=== PATIENT | female | born 1990 | race Caucasian/White ===

== ENCOUNTER 2020-03-08 10:46 | Outpatient (REF) | payer MEDICAID, SELFPAY ==
[2020-03-09 11:34] LABS: BV Int Neg Control Negative (Negative); BV Int Pos Control Positive (Positive)
[2020-03-09 13:52] LABS: C. trachomatis RNA TMA NOT DETECTED (NOT DETECTED); N. gonorrhoeae RNA TMA NOT DETECTED (NOT DETECTED)
== END 2020-03-08 10:47 | disposition home or self-care (01) ==
LOC: HO.LAB 10:46
PROVIDERS: Visit Provider Advanced Practice Midwife
DX: N89.8 Other specified noninflammatory disorders of vagina (principal)
CPT/HCPCS: 36415; 87480; 87491; 87510; 87591; 87660; 99212

== ENCOUNTER 2020-03-21 09:00 | Outpatient (REF) | payer MEDICAID, SELFPAY ==
[2020-03-25 21:52] LABS: HPV mRNA E6/E7 Not Detected (Not Detected)
== END 2020-03-21 09:01 | disposition home or self-care (01) ==
LOC: HO.LAB 09:00
PROVIDERS: Visit Provider Advanced Practice Midwife
DX: Z01.419 Encounter for gynecological examination (general) (routine) without abnormal findings (principal); Z87.42 Personal history of other diseases of the female genital tract
CPT/HCPCS: 36415; 87624; 87625; 88141; 88142

== ENCOUNTER 2020-04-01 10:44 | Outpatient (REF) | payer MEDICAID, SELFPAY ==
--- NOTE | 2020-04-01 11:16 | ECG_ITS ---
Test Reason : PREPRROC EXAM Blood Pressure : / mmHG Vent. Rate : 076 BPM Atrial Rate : 076 BPM P-R Int : 152 ms QRS Dur : 078 ms QT Int : 360 ms P-R-T Axes : 064 043 023 degrees QTc Int : 405 ms Normal sinus rhythm Normal ECG No previous ECGs available Referred By: Shantel Foley Electronically Signed By:JOAN SHELL MD
[2020-04-01 11:38] LABS: MANUAL DIFF FLAG NO
[2020-04-01 11:50] LABS: Basophils Percent Auto 0.5 % (0-2); Eosinophils Absolute Auto 0.1 X10*3/uL (0.0-0.4); Eosinophils Percent Auto 1.4 % (0-4); Hematocrit 36.4 % (37-47); Hemoglobin 12.7 g/dl (12.0-16.0); Imm Gran Abs Auto 0.02 X10*3/uL (0.00-0.03); Imm Gran Pct Auto 0.3 % (0.0-0.4); Lymphocytes Absolute Auto 2.5 X10*3/uL (1.2-4.9); Lymphocytes Percent Auto 31.5 % (20-40); Mean Corpuscular HGB Conc 34.9 g/dl (31.0-35.0); Mean Corpuscular Hemoglobin 30.5 pg (27.0-33.0); Mean Corpuscular Volume 87.5 fL (80-98); Mean Platelet Volume 11.6 fL (9.4-12.3); Monocytes Absolute Auto 0.5 X10*3/uL (0.1-1.2); Monocytes Percent Auto 5.7 % (2-11); Neutrophils Absolute Auto 4.8 X10*3/uL (2.0-8.3); Neutrophils Percent Auto 60.6 % (45-73); Platelet Count 218 X10*3/uL (160-400); Prothrombin Time 11.8 SEC (10.8-13.0); Red Blood Count 4.16 X10*6/uL (4.20-5.50); White Blood Count 7.9 X10*3/uL (4.8-10.8)
[2020-04-01 11:53] LABS: Partial Thromboplastin Time 31.4 SEC (24.1-38.0)
[2020-04-01 12:17] LABS: Alanine Aminotransferase < 6 U/L (0-31); Albumin Level 4.5 g/dL (3.5-5.0); Alkaline Phosphatase 47 U/L (39-117); Anion Gap 11 (12-20); Aspartate Amino Transferase 14 U/L (5-31); Bilirubin Total 0.5 mg/dL (0.0-1.0); Blood Urea Nitrogen 16 mg/dL (9-16); Calcium 9.4 mg/dL (8.4-10.2); Carbon Dioxide 27 mmol/L (22-29); Chloride 104 mmol/L (96-108); Estimated Glomerular Filt Rate > 60; Glucose Random 80 mg/dL (60-115); Potassium 4.1 mmol/L (3.3-5.1); Sodium 138 mmol/L (135-145); Total Protein 7.2 g/dL (6.5-8.0)
[2020-04-01 12:27] LABS: HIV AB/AG Nonreactive (Nonreactive); HIV Num 1 0.06 S/CO (0.00-0.99)
[2020-04-01 12:36] LABS: HCG Quantitative < 2 mIU/mL; Thyroid Stimulating Hormone 1.79 uIU/mL (0.32-4.0)
[2020-04-01 13:26] LABS: Estimated Average Glucose 91 mg/dL; Hemoglobin A1c % 4.8 %
[2020-04-02 15:56] LABS: C. trachomatis RNA TMA NOT DETECTED (NOT DETECTED); N. gonorrhoeae RNA TMA NOT DETECTED (NOT DETECTED)
[2020-04-02 21:52] LABS: Triiodothyronine T3 Free 3.1 pg/mL (2.3-4.2)
== END 2020-04-01 10:45 | disposition home or self-care (01) ==
LOC: HO.LAB 10:44
PROVIDERS: Absent Provider Family Medicine; PCP Internal Medicine; Visit Provider Internal Medicine
DX: Z01.818 Encounter for other preprocedural examination (principal)
CPT/HCPCS: 36415; 80053; 83036; 84436; 84443; 84481; 84702; 85025; 85610; 85730; 87389; 87491; 87591; 93005

== ENCOUNTER 2021-12-31 11:54 | Outpatient (REF) | payer MEDICAID, SELFPAY | END 2021-12-31 11:55 | disposition home or self-care (01) | LOC: HO.LNP 11:54 | PROVIDERS: Visit Provider Advanced Practice Midwife | DX: Z13.89 Encounter for screening for other disorder (principal) ==

== ENCOUNTER 2021-12-31 16:03 | Outpatient (REF) | payer MEDICAID, SELFPAY ==
[2022-01-01 02:26] LABS: CT PCR NOT DETECTED (Not Detect.); NG PCR NOT DETECTED (Not Detect.)
[2022-01-01 09:35] LABS: BV Int Neg Control Negative (Negative); BV Int Pos Control Positive (Positive)
== END 2021-12-31 16:04 | disposition home or self-care (01) ==
LOC: HO.LNP 16:03
PROVIDERS: Visit Provider Advanced Practice Midwife
DX: Z01.419 Encounter for gynecological examination (general) (routine) without abnormal findings (principal)
CPT/HCPCS: 87480; 87491; 87510; 87591; 87660

== ENCOUNTER → 2022-05-06 13:18 | Outpatient (REF) | payer MEDICAID, SELFPAY ==
--- NOTE | 2022-05-06 13:21 | CA_ITS ---
Transthoracic Echocardiogram Patient (Last, First, Middle): Neisha De Guzman, Gender: Female Date of : 1990 Age: 32 Procedure Date: 05/06/2022 Procedure Type: Transthoracic Echocardiogram Location: OP Height: 165. cm Weight: 60.33 kg BSA: 1.66 m2 Heart Rate: 69 bpm BP: 100 / 70 mmHg Retail Financial Analyst: TORO Referring MD: Shantel Foley MD Symptoms: DIZZINESS Study Quality: Adequate ECG Rhythm: Sinus Conclusions: - The left ventricular systolic function is normal. The visually estimated ejection fraction is between 55-60%. - No obvious valvular pathology seen on this study. Findings Left Ventricle Normal left ventricular cavity size. There is normal left ventricular wall thickness. The left ventricular systolic function is normal. The visually estimated ejection fraction is between 55-60%. There is no evidence of regional wall motion abnormalities. Diastolic function is normal for age. Right Ventricle Normal right ventricular cavity size and systolic function. Atria Both atria are normal in size. Aortic Valve There is a normal trileaflet aortic valve. There is no aortic valve stenosis. There is no aortic valve regurgitation. Mitral Valve The mitral valve appears normal. There is trace mitral valve regurgitation. There is no mitral valve stenosis. Pulmonic Valve The pulmonic valve is likely normal. Tricuspid Valve Normal tricuspid valve structure. There is trace tricuspid valve regurgitation. There is no evidence of pulmonary hypertension. Great Vessels The aortic annulus, sinuses of valsalva, and asc aorta are normal in size. Venous The inferior vena cava is normal in size and collapses greater than 50% with inspiration. Pericardium/Pleural There is a trivial pericardial effusion. Prior Study Comparison No prior study available for comparison. Recommendations, Care & Conclusions No obvious valvular pathology seen on this study. Measurements 2D Linear Measurements IVSd: 0.78 0.6-0.9/0.6-1.0 cm LVIDd: 4.58 3.9-5.3/4.2-5.9 cm LVIDd Index: 2.76 2.4-3.2/2.2-3.1 cm/m2 LVIDs: 3.30 2.0-3.6 cm LVPWd: 0.82 0.7-1.1 cm LA Diam: 3.10 2.7-3.8/3.0-4.0 cm LAIDs Index: 1.87 1.5-2.3 cm/m2 LV Mass: 146.15 67-162/88-224 g LV Mass Index: 88.04 43-95/49-115 g/m2 LVOT Diam: 1.80 3.0+(-)1.3 cm 2D Systolic Function EF 4C: 61.30 >55% EF 2C: 64.30 >55% EF BiP: 63.50 >55% Mitral Valve MV Pk E: 0.75 MV PK A: 0.62 MV Decel Time: 187.00 E/A: 1.20 E'Lateral: 11.20 E'Medial: 10.20 E/E' Med: 7.40 E/E' Lat: 6.70 PHT: 55.00 MVA PHT: 4.00 Decel Bulloch: 4.02 Aortic Valve AoV Pk Edenilson: 1.28 AoV Mn Edenilson: 0.89 AoV VTI: 0.28 AoV Pk Grad: 7.00 Aov Mn Grad: 4.00 GEORGETTE Cont.VTI: 1.71 LVOT LVOT Pk Edenilson: 0.84 LVOT Mn Edenilson: 0.60 LVOT VTI: 0.19 LVOT Pk Grad: 3.00 LVOT Mn Grad: 2.00 LVOT Diam: 1.80 LVOT Area: 2.54 Diastolic Function MV Pk E: 0.75 MV Pk A: 0.62 E/A: 1.20 E'Medial: 10.20 E/E' Med: 7.40 E' Laterial: 11.20 E/E' Lat: 6.70 Right Ventricle TAPSE (mm): 20.40 TVS' Edeinlson: 11.40 Tricuspid Valve TR Pk Edenilson: 1.53 TR Pk Grad: 9.00 RA Press: 3.00 RVSP: 12.00 Great Vessels Aorta Sinus of Valsalva: 2.70 2.0-3.5 cm Ao Asc: 2.90 2.1-3.4 cm Pulmonary Valve PV Pk Edenilson: 0.69 Peak PV Grad: 2.00 Updated in Other Vendor System with Status of Final Del Lyle MD electronically signed on 05/07/2022 4:36:41 PM with status of Final
== END ==
LOC: HO.CARD 13:18
PROVIDERS: PCP Internal Medicine; Visit Provider Internal Medicine
DX: R42 Dizziness and giddiness (principal)
CPT/HCPCS: 93306

== ENCOUNTER 2023-07-20 13:24 | Outpatient (REF) | payer MEDICAID, SELFPAY ==
[2023-07-21 09:33] LABS: CT PCR NOT DETECTED (Not Detect.); NG PCR NOT DETECTED (Not Detect.)
[2023-07-21 10:23] LABS: Bacterial Vaginosis PCR NEGATIVE (Negative); Candida Group PCR NOT DETECTED (Not Detect); Candida glab krusei PCR NOT DETECTED (Not Detect); Trichomonas vaginalis PCR NOT DETECTED (Not Detect)
[2023-07-31 10:39] LABS: HPV 16 RNA NOT DETECTED (NOT DETECTED); HPV mRNA E6/E7 rflx Detected (Not Detected)
== END 2023-07-20 13:25 | disposition home or self-care (01) ==
LOC: HO.LAB 13:24
PROVIDERS: PCP Internal Medicine; Visit Provider Advanced Practice Midwife
DX: Z01.419 Encounter for gynecological examination (general) (routine) without abnormal findings (principal); N89.8 Other specified noninflammatory disorders of vagina; Z11.3 Encounter for screening for infections with a predominantly sexual mode of transmission
CPT/HCPCS: 0352U; 0353U; 87624; 87625; 88142; 99395

== ENCOUNTER 2023-07-20 13:24 | Outpatient (AMB) | payer MEDICAID, SELFPAY ==
[2023-07-20 13:29] VITALS: BP 110/68; BMI 23.0
--- NOTE | 2023-07-20 13:29 | MHC.OFFVIS ---
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 She notes that her breast do get whalen and more heavy before her period.. She is expecting her period in about a week at this point [facility] Surgical History H/O abdominoplasty Family History Mother HTN (hypertension) Father Colon cancer Social History Alcohol intake: current Alcohol intake frequency: holidays/special occasions only Gender identity: Female Female Reproductive History Menstrual Age of Menarche: 11 Duration of menses: 3-5 days Date of last menstrual period: 06/29/23 control method: none Total pregnancies: 2 Full term: 2 Date of last pap smear: 03/22/20 ( previous pap 2019,wn) History of abnormal pap smear: No Physical Exam Vital Signs: Last Vital Signs BP 110/68 07/20/23 13:29 BMI result Body Mass Index 23.0 Const General: healthy appearing, comfortable, no acute distress, well developed and alert Nutritional Appearance: average body habitus Orientation/consciousness: patient oriented x3 Limitations: no limitations HEENT Head: Yes normocephalic Neck Neck: Yes normal visual inspection Chest Chest palpation & inspection: normal inspection of the chest Breast/axilla inspection: normal inspection of the breasts and normal inspection of the axillae Breast/axilla palpation: normal palpation of the breasts and normal palpation of the axillae Resp Effort & Inspection: normal respiratory effort GI Inspection: Yes normal to inspection, No Abdominal wall edema and No distended Palpation (GI): Soft to palpation and nontender Other: External exam within normal limits vagina is pink moist cervix multiparous pink smooth extremely posterior and markedly downward facing, uterus small anteverted mobile nontender adnexa nontender very good tone with Kegel. General: Yes bladder normal to palpation External Female Exam: normal external appearance and normal appearance of the urethra Speculum Exam - Vagina: normal appearance of the vagina, normal palpation and normal vaginal discharge Speculum Exam - Cervix: normal appearance of the cervix, normal palpation and nontender Bimanual exam- vagina & uterus: normal bimanual exam, normal palpation, uterine size normal, bladder normal to palpation, consistency normal, normal palpation, uterine mobility normal, uterine shape normal, No Cervical tenderness present, non-tender and no cervical motion tenderness Bimanual Exam- Adnexa, other: normal adnexae, no masses, normal and No adnexal tenderness Neuro General: patient oriented x3 Results Reviewed Results Reviewed: Name: Neisha De Guzman Age/Sex: 30/F Attending: Justyna Romero CNM : 1990 Submitted by: Justyna Romero CNM Copies to: MR #: [id number] Status: DEP REF Collected: 03/21/20 [facility] Received: 03/22/20 Interpretation PAP sent to [facility] for processing and interpretation. See [id number] in EMR - Miscellaneous portion of the Laboratory Section of the EMR. Note: Clinical Information LMP: 03/15/20 Previous PAP test: 11/28/18, WNL Material Received ThinPrep cervical Electronically Signed By: Jose Cannon MD 04/02/20 1013 The Pap Test is a screening procedure with the inherent possibility of both false negative and false positive results. Results should be interpreted in the context of historic and current clinical findings. Reliability of the Pap Test is enhanced by performing the test on a regular repetitive basis. Patient: Jax Page 1 of 1 Name: Neisha De Guzman Age/Sex: 30/F : 1990 Unit#: [id number] Attend Dr: Justyna Romero CNM Re03/21/20 Status: DEP REF [facility] Disch: SPEC : [id number] SUMMER: 03/21/20 STATUS: COMP REQ : [id number] RECD: 03/22/20-[address]: Justyna Romero CNM COMP: 03/25/20 ENTERED: 03/22/20-[address] [facility] [address]: ORDERED: PAP+[id number] QUERIES: Thin Prep Clinical Information: Routine LMP: 03/15/20 Thin Prep Source: Cervix Previous PAP Date: 11/28/18 Test Result Flag Reference Site HPV mRNA E6/E7 Not Detected Not Detected QUM This test was performed using the APTIMA HPV Assay ([employer] This assay detects E6/E7 viral messenger RNA (mRNA) from 14 high-risk HPV types (16,18,31,33,35,39,45,51,52,56,58,59,66,68). The analytical performance characteristics of this assay have been determined by [employer]. The modifications have not been cleared or approved by the FDA. This assay has been validated pursuant to the CLIA regulations and is used for clinical purposes. THIS TEST WAS PERFORMED AT: [facility] [address] [address] DORA LEMON MD HPV 16,18/45 Test not performed QUM Thin Prep Sourc SEE NOTE QUM Cervix Clinical Info. SEE NOTE QUM Routine exam LMP SEE NOTE QUM 03/15/20 Previous PAP SEE NOTE QUM 11/28/18 Prev Bx. Date SEE NOTE QUM NONE GIVEN [place] SEE NOTE QUM Satisfactory for evaluation. Endocervical/transformation zone component present. Interp/Result SEE NOTE QUM Negative for intraepithelial lesion or malignancy. [employer]. SEE NOTE QUM NSS, CT(ASCP) CT screening location: [address] [address] See Note SEE NOTE QUM EXPLANATORY NOTE: The Pap is a screening test for cervical cancer. It is not a diagnostic test and is subject to false negative and false positive results. It is most reliable when a satisfactory sample, regularly obtained, is submitted with relevant clinical findings and history, and when the Pap result is evaluated along with historic and current clinical information. Copy of Pap was given to patient as she did not remember having it done. actual resulted areas were highlighted for her. Assessment & Plan Assessment & Plan (1) Screen for sexually transmitted diseases: Code(s): Z11.3 - Encounter for screening for infections with a predominantly sexual mode of transmission Category: Medical (2) Encounter for well woman exam with routine gynecological exam: Code(s): Z01.419 - Encounter for gynecological examination (general) (routine) without abnormal findings Category: Medical (3) Cervical cancer screening: Comment: 03/21/20 pap= neg w neg hpv.(quest) Code(s): Z12.4 - Encounter for screening for malignant neoplasm of cervix Category: Medical Plan -----Discussed in this visit the following: healthy balanced diet, regular and consistent exercise, getting recommended health screens, doing the best she can for her particular health concerns, kegel exercises, pap smear screening and followup recommendations, mammography screening and SBE, normal changes in cycles in her life stage--- . Reviewed her cycles and that it is very helpful that she keeps such good track of her cycles and knows where she is physiologically and how she pays attention to her symptoms which are all within normal limits review that mammograms with started age 38 I feel no masses at all in her breasts. Her discharge appeared consistent with either some days before or after ovulation moist and very clear and white healthy appearing. It was challenging to visualize her cervix as it was so posterior but it appeared within normal limits scant amount of spotting from assertively using Cytobrush to obtain adequate Pap. She is keeping very good care of herself in all ways we will see her in 1 year. Orders: Orders Bacterial Vaginosis Panel Today N89.8 - Other specified noninflammatory disorders of vagina CT NG by PCR Today Z01.419 - Encounter for gynecological examination (general) (routine) without abnormal findings Pap Smear Today Z01.419 - Encounter for gynecological examination (general) (routine) without abnormal findings Coding Level of Care Code Est Pt Prev Care 18-39y(28075) Diagnoses Screen for sexually transmitted diseases Z11.3 Encounter for well woman exam with routine gynecological exam Z01.419 Cervical cancer screening Z12.4
== END 2023-07-20 14:17 | disposition home or self-care (01) ==
PROVIDERS: PCP Internal Medicine; Visit Provider Advanced Practice Midwife
DX: Z11.3 Encounter for screening for infections with a predominantly sexual mode of transmission (principal); Z01.419 Encounter for gynecological examination (general) (routine) without abnormal findings; Z12.4 Encounter for screening for malignant neoplasm of cervix
CPT/HCPCS: 99395

== ENCOUNTER 2024-12-13 13:13 | Outpatient (REF) | payer MEDICAID, SELFPAY ==
[2024-12-14 04:55] LABS: Bacterial Vaginosis PCR NEGATIVE (Negative); Candida Group PCR NOT DETECTED (Not Detect); Candida glab krusei PCR NOT DETECTED (Not Detect); Trichomonas vaginalis PCR NOT DETECTED (Not Detect)
[2024-12-14 05:25] LABS: CT PCR NOT DETECTED (Not Detect.); NG PCR NOT DETECTED (Not Detect.)
== END 2024-12-13 13:14 | disposition home or self-care (01) ==
LOC: HO.LNP 13:13
PROVIDERS: PCP Internal Medicine; Visit Provider Advanced Practice Midwife
DX: Z01.419 Encounter for gynecological examination (general) (routine) without abnormal findings (principal); Z98.890 Other specified postprocedural states; Z98.82 Breast implant status; Z20.2 Contact with and (suspected) exposure to infections with a predominantly sexual mode of transmission
CPT/HCPCS: 81515; 87491; 87591; 87626; 88175; 99395; 99459

== ENCOUNTER 2024-12-13 13:13 | Outpatient (AMB) | payer MEDICAID, SELFPAY ==
--- NOTE | 2024-12-13 13:14 | A.OFFVIS_ITS ---
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 She had an abnormal Pap smear with positive HPV last year so she is aware and eager to have her Pap smear with HPV code testing this year. She is sexually active but she uses withdrawal with her . She had breast augmentation surgery last year and she has had a tummy tuck in the past as well. She is interested in full STI testing with the pelvic exam but declines blood work for HIV hep B hep C and syphilis. She is aware of ovulation her last period was December 02 and she thinks she is approaching ovulation now. [facility] Surgical History (Updated 12/13/24 @ 13:54 by Kemi Cao CNM) H/O breast implant H/O abdominoplasty Family History Mother HTN (hypertension) Father Colon cancer Social History Alcohol intake: current Alcohol intake frequency: holidays/special occasions only Gender identity: Female Female Reproductive History Menstrual Age of Menarche: 11 Duration of menses: 3-5 days Date of last menstrual period: 12/02/24 control method: none Total pregnancies: 2 Full term: 2 Date of last pap smear: 07/21/23 History of abnormal pap smear: Yes Physical Exam Vital Signs: BMI result Body Mass Index 22.1 Const General: healthy appearing, comfortable, no acute distress, well developed and alert Nutritional Appearance: average body habitus Orientation/consciousness: patient oriented x3 Limitations: no limitations HEENT Head: Yes normocephalic Neck Neck: Yes normal visual inspection Chest Chest palpation & inspection: normal inspection of the chest Breast/axilla inspection: normal inspection of the breasts and normal inspection of the axillae Breast/axilla palpation: normal palpation of the breasts and normal palpation of the axillae Resp Effort & Inspection: normal respiratory effort GI Inspection: Yes normal to inspection, No Abdominal wall edema and No distended Palpation (GI): Soft to palpation and nontender Other: External exam within normal limits patient has tiny little bumps on mons pubis that appeared to be very common non worrisome skin growths they are just 1 or 2 recommend she speak with model maker fiberglass when she sees him or her. Moist vagina with normal clear scant discharge cervix is parous scarred horizontally gapes slightly long close thick and firm mobile uterus is small anteverted mobile nontender adnexa nontender nonenlarged extremely good tone with Kegel. General: Yes bladder normal to palpation External Female Exam: normal external appearance and normal appearance of the urethra Speculum Exam - Vagina: normal appearance of the vagina, normal palpation and normal vaginal discharge Speculum Exam - Cervix: normal appearance of the cervix, normal palpation and nontender Bimanual exam- vagina & uterus: normal bimanual exam, normal palpation, uterine size normal, bladder normal to palpation, consistency normal, normal palpation, uterine mobility normal, uterine shape normal, No Cervical tenderness present, non-tender and no cervical motion tenderness Bimanual Exam- Adnexa, other: normal adnexae, no masses, normal and No adnexal tenderness Neuro General: patient oriented x3 Results Reviewed Results Reviewed: Name: Neisha De Guzman Age/Sex: 33/F Attending: Kemi Cao CNM : 1990 Submitted by: Kemi Cao CNM Copies to: Shantel Foley MD MR #: [id number] Status: DEP REF Collected: 07/20/23 Location: .LAB Received: 07/21/23 Interpretation Satisfactory for evaluation. Negative for intraepithelial lesion or malignancy. Reactive cellular changes. Moderate inflammation. HPV mRNA E6/E7: DETECTED This assay detects E6/E7 viral messenger RNA (mRNA) from 14 high-risk HPV types (16, 18, 31, 33, 35, 39, 45, 51, 52, 56, 58, 59, 66, 68) HPV Type 16 RNA: Not Detected HPV Type 18/45 RNA: Not Detected HPV testing performed by [facility], [place], [place]. See reference laboratory portion of the EMR for entire report. Clinical Information LMP:06/29/23 Previous PAP test:2021, WNL Material Received ThinPrep-Cervical Copies To Shantel Foley MD [address] [place] [id number] Kemi Cao CNM [address] [facility] [address] [place] [address] Electronically Signed By: Jose Cannon MD 08/11/23 2478 Patient: Neisha De Guzman Age/Sex: 33/F MR#: [id number] Page 1 of 2 Gynecologic Cytology [id number] The Pap Test is a screening procedure with the inherent possibility of both false negative and false positive results. Results should be interpreted in the context of historic and current clinical findings. Reliability of the Pap Test is enhanced by performing the test on a regular repetitive basis. Patient: Neisha De Guzman Age/Sex: 33/F MR#: [id number] Assessment & Plan Assessment & Plan (1) Cervical cancer screening: Comment: 03/21/20 pap= neg w neg hpv.(quest);07/20/23 pap= Pos HPV, pap pending....pap is neg, per guidelines, repeat pap in 1 yr w cotesting. Code(s): Z12.4 - Encounter for screening for malignant neoplasm of cervix Category: Medical (2) Encounter for well woman exam with routine gynecological exam: Code(s): Z01.419 - Encounter for gynecological examination (general) (routine) without abnormal findings Category: Medical (3) Screen for sexually transmitted diseases: Code(s): Z11.3 - Encounter for screening for infections with a predominantly sexual mode of transmission Category: Medical (4) H/O abdominoplasty: Code(s): Z98.890 - Other specified postprocedural states Category: Surgical (5) H/O breast implant: Code(s): Z98.82 - Breast implant status Category: Surgical Plan -----Discussed in this visit the following: healthy balanced diet, regular and consistent exercise, getting recommended health screens, doing the best she can for her particular health concerns, kegel exercises, pap smear screening and followup recommendations, mammography screening and SBE, normal changes in cycles in her life stage--- . Offered blood work for STIs but she has does not think she needs it she is happy to have all of the testing done with the pelvic exam however she is interested in finding out the results of the Pap smear with HPV co-testing I told her that we would call her with the results and she may look them up on the portal as well but she might see them before I do on the weekend and if she does and is concerned before we have reached her she may feel free to call us next week which is when we expect to be reviewing them. If it is abnormal, or with high-risk HPV she may very well need a colposcopy. Coding Level of Care Code Est Pt Prev Care 18-39y(41786) Diagnoses Cervical cancer screening Z12.4 Encounter for well woman exam with routine gynecological exam Z01.419 Screen for sexually transmitted diseases Z11.3 H/O abdominoplasty Z98.890 H/O breast implant Z98.82
[2024-12-13 13:18] VITALS: BMI 22.1
--- OUTSIDE RECORDS SUMMARY | 2024-12-13 16:53 | XMS_ITS | Encounter Summary ---
Author Organization [employer] Address [address] [facility] [address] [place] [address] Care Team Providers Care Corrections Identification Technician Name Role Phone Shantel Foley MD Primary Care Provider + Reason for Visit * Reason Onset Date Comments Referral 12/13/2024 Encounter Details Date Type Department Care Team ([facility] st Contact Info) Description 12/13/2024 Telephone [facility] [address] [place], [place] [phone] Shantel Foley MD [address] [place] [address] Referral Social History Tobacco Use Types Packs/Day Years Used Date Smoking Tobacco: Never Passive Smoke Exposure: Never Smokeless Tobacco: Never Alcohol Use Standard Drinks/Week Comments Never 0 (1 standard drink = 0.6 oz pur e alcohol) Depression Answer Date Recorded Patient Health Questionnaire-9 Score 0 10/18/2024 Patient Health Questionnaire-9 Score 0 10/18/2024 Last PHQ-9: Questionnaire Data Not on file 0 10/18/2024 Housing Stability Answer Date Recorded What is your housing situation today? I have balwinder sing 11/29/[address] you li ve. Do you have problems with any of the following? None of the above 11/29/2023 Food Insecurity Answer Date Recorded Within the past 12 months, y ou worried that your food would run out before you got money to buy more: Never True 11/29/2023 Within the past 12 months,th e food you bought just didn't last and you didn't have enough money to get more: Never True Transportation Answer Date Recorded In the past 12 months, has l ack of transportation kept you from medical appts, meetings, work or from getting things needed for daily living? No 11/29/2023 Utilities Answer Date Recorded In the past 12 months, has t he electric, gas, oil or water company threatened to shut off services in your home? No 11/29/2023 Depression Answer Date Recorded Patient Health Questionnaire-2 Score 0 10/18/2024 Internet Access Answer Date Recorded Internet Access Q1 Yes 11/29/2023 Internet Access Q2 Not on file 11/29/2023 Comments No Sex and Gender Information Value Date Recorded Sex Assigned at Female 12/29/2021 10:31 AM EDT Legal Sex Female 10:31 AM EDT Gender Identity Female 12/29/2021 10:31 AM EDT Sexual Orientation Straight 12/29/2021 10 :31 AM EDT documented as of this encounter Miscellaneous Notes * Telephone Encounter - Catina Apodaca - 12/13/2024 1:55 PM EDT Pt walked in requesting referral to metal and plastic heater to see Dr Kaur at [address] [place] [phone] their phone number is [phone] fax number is [phone]. The doctors NPI# is [id number] documented in this encounter Plan of Treatment Not on file documented as of this encounter Visit Diagnoses Not on filedocumented in this encounter Additional Health Concerns Assessment Noted Time PHQ-9 Depression Total Score: 0 10/19/19 25 4:13 PM EDT documented as of this encounter Care Teams Corrections Identification Technician Relationship Specialty Start Date End Date Shantel Foley MD [address] [place] [id number] PCP - General Family Medicine 07/15/16 documented as of this encounter
--- OUTSIDE RECORDS SUMMARY | 2024-12-13 16:53 | XMS_ITS | Encounter Summary ---
Author Organization [employer] Address [address] [place] [address] [address] [place] [address] Care Team Providers Care Electrical Systems Design Engineer Name Role Phone Shantel Foley MD Primary Care Provider + Encounter Details Date Type Department Care Team (Latest Contact Info) Description 10/17/2021 Abstract [facility] CONVERSIONS Dental, Provider, DDS Social History Tobacco Use Types Packs/Day Years Used Date Smoking Tobacco: Never Assessed Comments Unknown Sex and Gender Information Value Date Recorded Sex Assigned at Female 12/29/2021 10:31 AM EDT Legal Sex Female 10:31 AM EDT Gender Identity Female 12/29/2021 10:31 AM EDT Sexual Orientation Straight 12/29/2021 10 :31 AM EDT documented as of this encounter Plan of Treatment Not on file documented as of this encounter Visit Diagnoses Not on filedocumented in this encounter Care Teams Electrical Systems Design Engineer Relationship Specialty Start Date End Date Shantel Foley MD [address] [place] [id number] PCP - General Family Medicine 07/15/16 documented as of this encounter
--- OUTSIDE RECORDS SUMMARY | 2024-12-13 16:53 | XMS_ITS | Encounter Summary ---
Author Organization [employer] Address [address] [place] [address] 7 [place] [address] Care Team Providers Care Lead Generation Specialist Name Role Phone Shantel Foley MD Primary Care Provider + Encounter Details Date Type Department Care Team (Latest Contact Info) Description 10/05/2018 Abstract [facility] Dental, Provider, DDS Social History Tobacco [...] on filedocumented in this encounter Care Teams Lead Generation Specialist Relationship Specialty Start Date End Date Shantel Foley MD [address] [place] [id number] PCP - General Family Medicine 07/15/16 documented as of this encounter
--- OUTSIDE RECORDS SUMMARY | 2024-12-13 16:53 | XMS_ITS | Clinical Summary ---
Author Organization [employer] Address [address] [facility] [address] [place] [address] Care Team Providers Care Chief Concierge Name Role Phone Shantel Foley MD Primary Care Provider + Allergies No known active allergies Medications meloxicam (Mobic) 15 MG tablet take 1 tablet by oral route every day prn pain 07/20/2016 Active Active Problems Problem Noted Date Diagnosed Date Sciatic nerve disease, left 10/18/2024 Assessment & Plan (12/11/2024 3:58 PM EDT): It is not clear if it related to lumbar disc disease versus peripheral compression of sciatic nerve at the hip level. We discussed about stretching exercises daily, apply heat to affected area use Tylenol as needed. Patient declined PT for now Follow-up as needed if symptoms do not improve after 4 weeks Thoracic spine pain 06/10/2023 Assessment & Plan (06/10/2023 3:37 PM EDT): See above. Cervical paraspinal muscle spasm 06/10/2023 Assessment & Plan (06/10/2023 3:36 PM EDT): Reccommended acupuncture Use tylenol prn Refer to pT Re evaluate in 3-4m Slow transit constipation 06/10/2023 Assessment & Plan (06/10/2023 3:36 PM EDT): Increase water intake, prune juice, raisins, flax seed powder, jan etc. 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 Continue using support stockings when she needs to stand for long periods of time. Reasurance about labs avoid drinking alcohol, using recreational substances or smoking FU with me in 1 year or earlier PRN. Assessment & Plan (04/27/2022 3:57 PM EST): dizziness it seems to be related to orthostatism pt may be dehydrated and has poor PO intake during the day. Order TSH, quantitative HCG and echocardiogram. Recommended increased PO fluids and frequent and small meals during the day. Prescription for compression stockings to use while working. FU with labs in 4-6 weeks. Encounters Date Type Department Care Team Description 12/13/2024 Telephone [facility] [address] [place] [id number] Shantel Foley MD Referral 10/18/2024 3:45 PM EDT Office Visit [facility] [address] [place] [phone] Shantel Foley MD Sciatic nerve disease, left (Primary Dx); Encounter for immunization 10/18/2024 Travel 10/17/2024 Telephone [facility] [address] [place] [address] Shantel Foley MD Chart Prep 10/12/2024 Travel 10/11/2024 Patient Outreach [facility] [address] [place] [address] Shantel Foley MD Pre-visit Planning (SDOH was already completed) from Last 3 Months Immunizations Immunization Administration Dates Next Due HepB-CpG 10/18/2024 Pfizer Covid-19 Vaccine 12+ 10/23/2020, Tdap 10/18/2024 Social History Tobacco Use Types Packs/Day Years Used Date Smoking Tobacco: Never Passive Smoke Exposure: Never Smokeless Tobacco: Never Tobacco Cessation:Counseling Given: Not Answered Alcohol Use Standard Drinks/Week Comments Never 0 (1 standard drink = 0.6 oz pur e alcohol) Depression Answer Date Recorded Patient Health Questionnaire-9 Score 0 10/18/2024 Patient Health Questionnaire-9 Score 0 10/18/2024 Last PHQ-9: Questionnaire Data Not on file 0 10/18/2024 Housing Stability Answer Date Recorded What is your housing situation today? I have balwinder licea 11/29/[address] you li [...] Orientation Straight 12/29/2021 10 :31 AM EDT Last Filed Vital Signs Vital Sign Reading Time Taken Comments Blood Pressure 114/70 10/18/2024 4:11 PM EDT Pulse 68 10/18/2024 4:11 PM EDT Temperature 36.4 C (97.5 F) 10/18/2024 4:11 PM EDT Respiratory Rate 12 10/18/2024 4:11 PM EDT Oxygen Saturation 99% 10/18/2024 4:11 PM EDT Inhaled Oxygen Concentration - - Weight 60.9 kg (134 lb 4 oz) 10/18/2024 4:11 PM EDT Height 165.1 cm (5' 5 ) 10/18/2024 4:11 PM EDT Body Mass Index 22.34 10/18/2024 4:11 PM EDT Plan of Treatment Health Maintenance Due Date Last Done Comments Family Planning (PISQ) 01/14/2003 HPV Vaccines (1 - 3-dose series) 01/14/2003 Hepatitis C Screening 01/14/2006 HPV/Cotest 01/14/2018 COVID-19 Vaccine (3 - 2024-2 6 season) 2024 10/23/2020, 10/02/2020 Influenza Vaccine (#1) 2024 Hepatitis B Vaccines (2 of 2 - CpG 2-dose series) 11/15/2024 10/18/2024 SDOH Screening 04/04/2025 04/04/2024 Alcohol/Substance Use Screening 10/18/2025 10/18/2024 Depression Screening 10/18/2025 10/18/2024, 10/18/2024 Disability Screening 10/18/2025 10/18/2024 Tobacco Screening 10/18/2025 10/18/2024 Cervical Cancer Screening 07/19/2026 Pap Smear 07/19/2026 07/20/2023 DTaP/Tdap/Td Vaccines (2 - T d or Tdap) 10/18/2034 10/18/2024 Zoster Vaccines (1 of 2) 01/14/2038 RSV Patients and Patients Aged 60 years or older (1 - 1-dose 75+ series) 01/14/2063 HIV Screening Completed 04/01/2020 HIB Vaccines Aged Out No longer eligi ble based on patient's age to complete this topic Hepatitis A Vaccines Aged Out No long er eligible based on patient's age to complete this topic IPV Vaccines Aged Out No longer eligi ble based on patient's age to complete this topic Meningococcal B Vaccine Aged Out No l onger eligible based on patient's age to complete this topic Meningococcal Vaccine Aged Out No kym atiya eligible based on patient's age to complete this topic Pneumococcal Vaccine: Pediatrics (0 to 5 Years) and At-Risk Patients (6 to 49) Years Aged Out No longer eligible b ased on patient's age to complete this topic RSV under 20 months Aged Out No longe r eligible based on patient's age to complete this topic Rotavirus Vaccines Aged Out No longer eligible based on patient's age to complete this topic Procedures Procedure Name Priority Date/Time Associated Diagnosis Comments PAP SMEAR Routine 07/20/2023 2:09 PM EDT ZZZ HISTORICAL HIV AB/AG Routine 04/01/2020 11:05 AM EST from Last 3 Months or Most Recently Relevant to Health Maintenance Results * Pap Smear (07/20/2023 2:09 PM EDT) 07/20/2023 2:09 PM EDT 07/21/2023 11:40 AM EDT [facility] - 08/11/2023 2:23 PM EDT ----- ------- Name: Neisha De Guzman Age/Sex: 33/F : 1990 Unit#: [id number] Attend Dr: Kemi Cao CNM Re07/20/23 Status: DEP REF Location: .LAB Disch: ----- ------- SPEC : [id number] RECD: 07/21/23-1140 STATUS: ARTHUR ALVAREZ NUM: [id number] SUMMER: 07/20/23-[address]: Kemi Cao CNM ENTERED: 07/21/23-1420 SP TYPE: Pap Smr OTHR DR: Shantel Foley MD ORDERED: Pap Smear, PAP path review Interpretation Satisfactory for evaluation. Negative for intraepithelial lesion or malignancy. Reactive cellular changes. Moderate inflammation. HPV mRNA E6/E7: DETECTED This assay detects E6/E7 viral messenger RNA (mRNA) from 14 high-risk HPV types (16, 18, 31, 33, 35, 39, 45, 51, 52, 56, 58, 59, 66, 68) HPV Type 16 RNA: Not Detected HPV Type 18/45 RNA: Not Detected HPV testing performed by [employer] [facility], [place], [place]. See reference laboratory portion of the EMR for entire report. Clinical Information LMP:06/29/23 Previous PAP test:2021, WN Material Received ThinPrep-Cervical Copies To: Shantel Foley MD [address] [place] [address] Kemi Cao [facility] [address] [facility] [address] [place] [address] ----- ------- Signed (signature on file) Jose Cannon MD 08/11/23 1423 ----- ------- END OF REPORT us Generic External Data Provider LAB CYTOLOGY [place] [facility]RAY Final Result Performing Organization Address City/State/[facility] Co de Phone Number [facility] [address] [place] [address] [phone] * HIV AB/AG (04/01/2020 11:05 AM EST) [facility] HIV AB/AG Nonreactive Nonreactive [facility] Comment: HIV-1 p24 Ag and/or HIV-1/HIV-2 Ab not detected. A test result that is nonreactive does not exclude the possibility of exposure to or infection with HIV-1 and/or HIV-2. Nonreactive results in this assay for individuals with prior exposure to HIV-1 and/or HIV-2 may be due to antigen and antibody levels that are below the limit of detection of this assay. [employer] [facility] [employer] HIV Ag/Ab Combo assay result and supplemental assay results should be interpreted in conjunction with the patient's clinical presentation, history and other laboratory results. If the results are inconsistent with clinical evidence, additional testing is suggested to confirm the result. 04/01/2020 11:0 5 AM EST us Shantel Foley MD HISTORICAL/NON ORDERABLE LABS Final Result [facility] [address] from Last 3 Months or Most Recently Relevant to Health Maintenance Insurance [place] [address] C3 Care Teams Chief Concierge Relationship Specialty Start Date End Date Shantel Foley MD [address] [place] [phone] PCP - General Family Medicine 07/15/16
== END 2024-12-13 15:21 | disposition home or self-care (01) ==
LOC: HO.HWSM 13:13
PROVIDERS: PCP Internal Medicine; Visit Provider Advanced Practice Midwife
DX: Z01.419 Encounter for gynecological examination (general) (routine) without abnormal findings (principal); Z11.3 Encounter for screening for infections with a predominantly sexual mode of transmission; Z98.890 Other specified postprocedural states; Z98.82 Breast implant status
CPT/HCPCS: 99395; 99459